=== PATIENT | female | born 1960 | race Caucasian/White ===

== ENCOUNTER 2020-11-01 17:34 | Emergency (ER) | payer OTHER ==
[2020-11-01 17:48] LABS: BASOPHIL 0.7 % (0-2); EOSINOPHIL 1.6 % (0-5); HCT 41.2 % (37.0-47.0); HGB 14.1 g/dl (12.5-16.0); MCH 30.9 pg (25.0-31.0); MCHC 34.2 g/dL (32.0-36.0); MCV 90.4 fL (78.0-100.0); MONOCYTE 7.3 % (0-12); MPV 9.5 fL (6.0-9.5); NEUTROPHIL 51.3 % (41-80); NRBC 0; PLT 279 K/uL (150-400); RBC 4.56 M/uL (4.20-5.40); WBC 9.1 K/uL (4.0-10.5)
[2020-11-01 18:07] LABS: PROTHROMBIN TIME 12.6 SECONDS (11.8-13.4)
[2020-11-01 18:10] LABS: ALBUMIN 4.4 g/dL (3.4-5.0); BILIRUBIN - TOTAL 0.7 mg/dL (0.2-1.0); BUN/CREAT RATIO (CALC) 17.7 RATIO; CREATININE 0.96 mg/dL (0.51-0.95); GLOBULIN (CALCULATION) 3.2 g/dL; TOTAL PROTEIN 7.6 g/dL (6.4-8.2)
== END 2020-11-01 19:15 | disposition other institution (70) ==
LOC: FER 17:34
PROVIDERS: Emergency Medicine
DX: I61.4 Nontraumatic intracerebral hemorrhage in cerebellum (principal); J45.909 Unspecified asthma, uncomplicated; Z88.1 Allergy status to other antibiotic agents
CPT/HCPCS: 36415; 37195; 70450; 71045; 80053; 80061; 82550; 82553; 83874; 84484; 85025; 85610; 85730; 93005; J2997